=== PATIENT | female | born 1980 | race African-American/Black ===

== ENCOUNTER 2016-08-30 16:47 | Emergency (ER) | payer OTHER ==
[~2016-08-30 16:47] MED LIST: DIFLUCAN PO; NAPROXEN PO; ZITHROMAX PO
[2016-08-30 16:55] LABS: URINE SOURCE CLEAN CATCH
[2016-08-30 17:06] LABS: URINE APPEARANCE CLEAR; URINE BILIRUBIN NEG (NEG); URINE BLOOD 2+ (NEG); URINE COLOR YELLOW; URINE GLUCOSE NEG (NEG); URINE KETONE NEG (NEG); URINE LEUKOCYTE ESTERASE TRACE (NEG); URINE NITRATE NEG (NEG); URINE PROTEIN NEG (NEG); URINE SPECIFIC GRAVITY 1.025 (1.003-1.035)
[2016-08-30 17:09] LABS: CULTURE INDICATED? YES; URINE BACTERIA AUWI 1+ (NEGATIVE); URINE SQUAMOUS EPITHELIAL CELL OCC /[HPF]
[2016-09-04 20:09] LABS: CHLAMYDIA TRACH Not Detected (Not Detected); N GONOR Not Detected (Not Detected)
== END 2016-08-30 18:15 | disposition home or self-care (01) ==
LOC: CFTX 16:47
PROVIDERS: Nurse Practitioner
DX: N39.0 Urinary tract infection, site not specified (principal); N76.0 Acute vaginitis; I10 Essential (primary) hypertension; K58.9 Irritable bowel syndrome, unspecified; F17.200 Nicotine dependence, unspecified, uncomplicated; Z90.710 Acquired absence of both cervix and uterus; Z98.890 Other specified postprocedural states
CPT/HCPCS: 81003; 87086; 87491; 87591; 87808; 87905; 99284

== ENCOUNTER 2017-02-08 13:39 | Emergency (ER) | payer OTHER ==
[~2017-02-08] VITALS: Ht 170.2 cm; Wt 90.7 kg
[2017-02-08] MEDS ORDERED: GABAPENTIN300 MG (13:49)
[2017-02-08] MEDS ORDERED: HCTZ (13:50)
== END 2017-02-08 14:59 | disposition home or self-care (01) ==
LOC: SED 13:39
DX: M54.41 Lumbago with sciatica, right side (principal); Z90.710 Acquired absence of both cervix and uterus; F17.210 Nicotine dependence, cigarettes, uncomplicated
CPT/HCPCS: 96372; 99283; J1885